=== PATIENT | female | born 1985 | race Caucasian/White ===

== ENCOUNTER 2021-09-01 23:44 | Emergency (ER) | payer SELFPAY ==
[2021-09-02 00:54] LABS: BASOPHIL 0.5 % (0-2); EOSINOPHIL 1.8 % (0-5); HCT 44.9 % (37.0-47.0); HGB 14.7 g/dl (12.5-16.0); LYMPHOCYTE 16.5 % (15-48); MCH 29.8 pg (25.0-31.0); MCHC 32.7 g/dL (32.0-36.0); MCV 90.9 fL (78.0-100.0); MONOCYTE 4.4 % (0-12); MPV 10.1 fL (6.0-9.5); NEUTROPHIL 76.6 % (41-80); NRBC 0; PLT 329 K/uL (150-400); RBC 4.94 M/uL (4.20-5.40); RDW 14.6 % (11.5-14.0); WBC 8.7 K/uL (4.0-10.5)
[2021-09-02 01:14] LABS: ALBUMIN 3.7 g/dL (3.4-5.0); ALKALINE PHOSHATASE 120 U/L (46-116); ALT 35 U/L (14-59); AST 29 U/L (15-37); BILIRUBIN - TOTAL 0.5 mg/dL (0.2-1.0); BUN 16 mg/dL (7-18); BUN/CREAT RATIO (CALC) 21.3 RATIO; CHLORIDE 102 mmol/L (98-107); CO2 (BICARBONATE) 24 mmol/L (21-32); CREATININE 0.75 mg/dL (0.51-0.95); GLOBULIN (CALCULATION) 4.3 g/dL; GLUCOSE 110 mg/dL (74-106); LIPASE 93 U/L (73-393); POTASSIUM 4.4 mmol/L (3.5-5.1)
[2021-09-02 01:22] LABS: BILIRUBIN NEGATIVE (NEGATIVE); BLOOD NEGATIVE Ery/uL (NEGATIVE); CLARITY CLEAR (CLEAR); COLOR YELLOW (YELLOW); GLUCOSE (U) NORMAL (NORMAL); LEUKOCYTES NEGATIVE Leu/uL (NEGATIVE); NITRITE NEGATIVE (NEGATIVE); PROTEIN NEGATIVE (NEGATIVE); UROBILINOGEN 0.2 mg/dL (0.2-1.0)
[2021-09-02 01:28] LABS: AMPHETAMINES POSITIVE (NEGATIVE); BARBITURATES NEGATIVE (NEGATIVE); ECSTASY (MDMA) POSITIVE (NEGATIVE); MARIJUANA (THC) NEGATIVE (NEGATIVE); METHADONE NEGATIVE (NEGATIVE); OPIATES NEGATIVE (NEGATIVE); OXYCODONE POSITIVE (NEGATIVE)
== END 2021-09-02 08:02 | disposition home or self-care (01) ==
LOC: FER 23:44
PROVIDERS: Internal Medicine
DX: F15.129 Other stimulant abuse with intoxication, unspecified (principal); Z28.310 Unvaccinated for COVID-19
CPT/HCPCS: 36415; 70450; 80053; 80305; 81003; 83690; 85025; G0480; J2060